=== PATIENT | male | born 1970 | race African-American/Black ===

== ENCOUNTER 2017-12-03 08:19 | Inpatient (IN) | payer OTHER ==
[2017-12-03 09:05] VITALS: BMI 22.5
--- NOTE | 2017-12-03 10:56 | HP ---
COWS - Scale Resting Pulse: 1= IN 81-100 Sweatin=Flushed/Facial Moisture Restless Observation: 3= Extraneous Movement Pupil Size: 2= Moderately Dilated Bone or Joint Aches: 2= Severe Diffuse Aches Runny Nose/ Eye Tearin= Runny Nose/Eyes GI Upset > 30mins: 2= Nausea/Diarrhea Tremor Observation: 2= Slight Tremor Visible Yawning Observation: 2= >3x During Session Anxiety or Irritability: 2=Irritable/Anxious Goose Flesh Skin: 0=Smooth Skin COWS Score: 20 CIWA Score - CIWA Score Nausea/Vomitin Muscle Tremors: 3 Anxiety: 3 Agitation: 2 Paroxysmal Sweats: 2 Orientation: 0-Oriented Tacttile Disturbances: 2-Mild Itch/Numbness/Burn Auditory Disturbances: 2-Mild Harshness/Frighten Visual Disturbances: 1-Very Mild Sensitivity Headache: 2-Mild CIWA-Ar Total Score: 20 Admission ROS BHS - HPI Chief Complaint: i need help yo stop using heroin,cocaine and marijuana Allergies/Adverse Reactions: Allergies Allergy/AdvReac Type Severity Reaction Status Date / Time divalproex sodium Allergy Hives Verified 12/03/17 09:19 [From [facility]] History of Present Illness: this 47 years old male with heroin,cocaine and marijuana dependence,seeking detox,withdrawal symptom, never been in detox before weight loss iddm hypertension,hepatitis c treated at [facility] bipolar disorder nicotine dependence Exam Limitations: No Limitations - Ebola screening Have you traveled outside of the country in the last 21 days: No Have you had contact with anyone from an Ebola affected area: No Have you been sick,other than usual withdrawal symptoms: No Do you have a fever: No - Review of Systems Constitutional: Chills, Loss of Appetite, Malaise, Night Sweats, Changes in sleep, Weakness EENT: reports: Tearing, Nose Congestion Respiratory: reports: No Symptoms reported Cardiac: reports: Palpitations GI: reports: Diarrhea, Nausea, Poor Appetite, Vomiting : reports: No Symptoms Reported Musculoskeletal: reports: Back Pain, Joint Pain, Muscle Pain, Joint Stiffness Neuro: reports: Headache, Tremors Endocrine: reports: No Symptoms Reported Hematology: reports: No Symptoms Reported Psychiatric: reports: No Sypmtoms Reported, Judgement Intact, Mood/Affect Appropiate, Orientated x3 (bipolar disoder) Other Systems: Reviewed and Negative Patient History - Patient Medical History Hx Asthma: Yes Hx Chronic Obstructive Pulmonary Disease (COPD): No Hx Cardiac Disorders: Yes (2016 WHILE AT [facility]) Hx Hypertension: Yes (NON COMPLIANCE) Hx Hypercholesterolemia: No Hx Pacemaker: No HX Cerebrovascular Accident: No Hx Seizures: No Hx Dementia: No Hx Diabetes: Yes (IDDM) Hx Gastrointestinal Disorders: No Hx Liver Disease: Yes (HEPATITIS C) Hx Genitourinary Disorders: No Hx Sexually Transmitted Disorders: No Hx Renal Disease (ESRD): No Hx Thyroid Disease: No Hx Human Immunodeficiency Virus (HIV): No (LAST 09/29 NEGATIVE) Hx Hepatitis C: Yes (TREATED 06/28 COMPLETED TREATMENT) Hx Depression: Yes Hx Suicide Attempt: No Hx Bipolar Disorder: Yes Hx Schizophrenia: No Other Medical History: NO SUICIDAL,NO HOMICIDAL - Patient Surgical History Past Surgical History: No Hx Neurologic Surgery: No Hx Cataract Extraction: No Hx Cardiac Surgery: No Hx Lung Surgery: No Hx Breast Surgery: No Hx Breast Biopsy: No Hx Abdominal Surgery: No Hx Appendectomy: No Hx Cholecystectomy: No Hx Genitourinary Surgery: No Hx Section: No Hx Orthopedic Surgery: No Anesthesia Reaction: No - PPD History Previous Implant?: Yes Documented Results: Negative w/o proof Implanted On Prior R Admission?: No PPD to be Administered?: Yes - Smoking Cessation Smoking history: Current every day smoker Have you smoked in the past 12 months: Yes Aproximately how many cigarettes per day: 20 Hx Chewing Tobacco Use: No Initiated information on smoking cessation: Yes 'Breaking Loose' booklet given: 12/03/17 - Substance & Tx. History Hx Alcohol Use: Yes Hx Substance Use: Yes Substance Use Type: Alcohol, Cocaine, Heroin - Substances Abused Heroin Route: Inhalation Frequency: Daily Amount used: 3 bags daily ($30 ) Age of first use: 16 Date of Last Use: 12/02/17 Alcohol Route: Oral Frequency: Daily Amount used: 6-10 24 ounces of Malt Liquor, Age of first use: 16 Date of Last Use: 12/02/17 Marijuana/Hashish Route: Smoking Frequency: Daily Amount used: 2 grams daily Age of first use: 16 Date of Last Use: 12/02/17 Cocaine Route: Injection Frequency: 3-6 times per week Amount used: 50$ Age of first use: 22 Date of Last Use: 12/01/17 Family Disease History - Family Disease History Family History: Denies Admission Physical Exam [facility] - Vital Signs Vital Signs: Vital Signs - 24 hr 12/03/17 12/03/17 08:53 09:05 Temperature 96 F L 96 F L Pulse Rate 90 90 Respiratory 18 18 Rate Blood Pressure 168/91 168/91 - Physical General Appearance: Yes: Moderate Distress, Tremorous, Sweating, Anxious HEENTM: Yes: Normal ENT Inspection, MARY, Pharynx Normal Respiratory: Yes: Lungs Clear, Normal Breath Sounds, No Respiratory Distress Neck: Yes: Within Normal Limits, Supple, Trachea in good position Breast: Yes: Within Normal Limits Cardiology: Yes: Within Normal Limits, Regular Rhythm, Regular Rate, S1, S2 Abdominal: Yes: Within Normal Limits, Normal Bowel Sounds, Non Tender, Soft Genitourinary: Yes: Within Normal Limits Extremities: Yes: Within Normal Limits, Normal Range of Motion, Tremors Neurological: Yes: geospatial image analyst II-XII NML intact, Fully Oriented, Alert, Motor Strength 5/5, Normal Mood/Affect Integumentary: Yes: Dry Lymphatic: Yes: Within Normal Limits - Diagnostic (1) Opioid dependence with withdrawal Current Visit: Yes Status: Acute (2) Alcohol dependence with uncomplicated withdrawal Current Visit: Yes Status: Acute (3) Cocaine dependence, uncomplicated Current Visit: Yes Status: Acute (4) Cannabis dependence Current Visit: Yes Status: Acute (5) Old AK (myocardial infarction) Current Visit: Yes Status: Acute (6) IDDM (insulin dependent diabetes mellitus) Current Visit: Yes Status: Acute (7) Hypertension Current Visit: Yes Status: Acute (8) Bipolar 1 disorder Current Visit: Yes Status: Acute (9) Weight loss Current Visit: Yes Status: Acute Cleared for Admission [facility] - Detox or Rehab [facility] Level of Care: Medically Managed Detox Regimen/Protocol: Methadone/Librium [facility] Breath Alcohol Content Breath Alcohol Content: 0 Urine Drug Screen - Results Drug Screen Negative: No Urine Drug Screen Results: THC-Marijuana, CARLIN-Cocaine, OPI-Opiates
[2017-12-03] MEDS ORDERED: NICOTINE POLACRILEX 2 MG GUM BUC PRN (11:16)
[2017-12-03] MEDS ORDERED: guaiFENesin/D-METHORPHAN HB 10 ML UNIT-DOSE CUPS PO PRN (11:16)
[2017-12-03] MEDS ORDERED: MENTHOL/PHENOL 1 EACH UD MM PRN (11:16)
[2017-12-03] MEDS ORDERED: LOPERAMIDE HCL 2 MG CAPSULE PO PRN (11:16)
[2017-12-03] MEDS ORDERED: MAGNESIUM HYDROX 2400MG/30ML ORAL SUSPENSION 30 ML CUP PO PRN (11:16)
[2017-12-03] MEDS ORDERED: MAGNESIUM CITRATE 300 ML BOTTLE PO PRN (11:16)
[2017-12-03] MEDS ORDERED: P-EPHED 60MG/TRIPROLIDI 2.5MG TABLET PO PRN (11:16)
[2017-12-03] MEDS ORDERED: chlordiazePOXIDE HCL 25 MG CAPSULE PO PRN (11:16)
[2017-12-03] MEDS ORDERED: hydrOXYzine PAMOATE 50 MG CAPSULE (FP) PO PRN (11:16)
[2017-12-03] MEDS ORDERED: MAG HYDROX/AL HYDROX/SIMETH 30 ML UNIT-DOSE CUP PO PRN (11:16)
[2017-12-03] MEDS ORDERED: IBUPROFEN 400 MG TABLET (FP) PO PRN (11:16)
[2017-12-03] MEDS ORDERED: ACETAMINOPHEN 325 MG TABLET (FP) PO PRN (11:16)
[2017-12-03] MEDS ORDERED: chlordiazePOXIDE HCL 25 MG CAPSULE PO ONE (11:30)
[2017-12-03] MEDS ORDERED: METHADONE HCL 10 MG TABLET (FOR DETOX USE ONLY) PO ONE ×2 (11:35→23:00)
[2017-12-03] MEDS: LISINOPRIL 10 MG TABLET (FP) PO SCH (12:56)
[2017-12-03] MEDS: ASPIRIN COATED 81 MG TABLET.EC PO SCH (12:56)
[2017-12-03] MEDS: NICOTINE 21 MG/24 HOURS TOPICAL PATCH TD SCH (13:00)
--- NOTE | 2017-12-03 16:23 | CONSULT ---
[facility] Psychiatric Consult - Data Date of interview: 12/03/17 Admission source: [facility] Identifying data: First admission to [facility] for this 47 y/o AA male seeking detox treatment [address] for heroin,cocaine,cannabis and phencyclidine (not found in toxicology screen).Patient is single,a father of one,domiciled, unemployed and supported on SSI/SSD benefits. Substance Abuse History: Confirmed by patient in my interview.Details in current [facility] report : Smoking history: Current every day smoker. Have you smoked in the past 12 months: Yes. Aproximately how many cigarettes per day: 20. Hx Chewing Tobacco Use: No. Initiated information on smoking cessation: Yes. 'Breaking Loose' booklet given: 12/03/17. - Substance & Tx. History. Hx Alcohol Use: Yes. Hx Substance Use: Yes. Substance Use Type: Alcohol, Cocaine , Heroin. - Substances Abused. Heroin. Route: Inhalation. Frequency: Daily. Amount used: 3 bags daily ($30 ). Age of first use: 16. Date of Last Use: 12/02/17. Alcohol. Route: Oral. Frequency: Daily. Amount used: 6-10 24 ounces of Malt Liquor,. Age of first use: 16. Date of Last Use: 12/02/17. Marijuana/Hashish. Route: Smoking. Frequency: Daily. Amount used: 2 grams daily. Age of first use: 16. Date of Last Use: 12/02/17. Cocaine. Route: Injection. Frequency: 3-6 times per week. Amount used: 50$. Age of first use : 22. Date of Last Use: 12/01/17 Medical History: Bronchial asthma,past history of mypcardial infarction (2016), hypertension,hepatitis C and diabetes mellitus. Psychiatric History: History of several psychiatric hospitalizations ([place], [facility]).Patient reports the diagnosis of Bipolar Disorder.Gets his outpatient psychiatric services at the [facility] residential treatment program in the [place].Managed on a regimen of seroquel 400 mg/hs + wellbutrin XL 150 mg/day + trazodone 100 mg/hs.Mr Ta endorses good adherence to his medications.Admits to one suicide attempt, years ago, via overdose with insulin.Patient denies. Physical/Sexual Abuse/Trauma History: Patient denies. Additional Comment: Urine Drug Screen Results: THC-Marijuana, CARLIN-Cocaine, OPI- Opiates.Noted. Mental Status Exam - Mental Status Exam Alert and Oriented to: Time, Place, Person Cognitive Function: Good Patient Appearance: Unkempt, Disheveled Mood: Nervous, Withdrawn, Anxious Affect: Mood Congruent, Constricted Patient Behavior: Fatigued, Cooperative Speech Pattern: Clear Voice Loudness: Normal Thought Process: Goal Oriented Thought Disorder: Not Present Hallucinations: Denies Suicidal Ideation: Denies Homicidal Ideation: Denies Insight/Judgement: Poor Sleep: Poorly, Difficulty falling asleep Appetite: Good Muscle strength/Tone: Normal Gait/Station: Normal Psychiatric Findings - Problem List ([place] 1, 2,3) (1) Opioid dependence with withdrawal Current Visit: Yes Status: Acute (2) Alcohol dependence with uncomplicated withdrawal Current Visit: Yes Status: Acute (3) Cannabis dependence Current Visit: Yes Status: Acute (4) Cocaine dependence, uncomplicated Current Visit: Yes Status: Acute (5) Nicotine dependence Current Visit: Yes Status: Acute Qualifiers: Nicotine product type: cigarettes Substance use status: in withdrawal Qualified Code(s): F17.213 - Nicotine dependence, cigarettes, with withdrawal (6) Substance induced mood disorder Current Visit: Yes Status: Acute (7) Bipolar disorder Current Visit: Yes Status: Chronic Comment: As per self-report. (8) Insomnia Current Visit: Yes Status: Acute Qualifiers: Insomnia type: unspecified Qualified Code(s): G47.00 - Insomnia, unspecified - Initial Treatment Plan Initial Treatment Plan: Psychoeducation.Detoxification in progress.Sleep hygiene.Medications : seroquel 150 mg po hs + wellbutrin XL 150 mg po daily.Trazodone temporarily withdrawn.Medications are intentionally reduced in view of mild sedation on admission.Titration will follow in next 24 hours as clinically indicated.Side effects/benefits of these three drugs are discussed with the patient.Mr Ta agrees with this careplan.Pharmacy claims revisited : evidence of refills for seroquel 300 mg # 30 tab/30 days + trazodone 100 mg # 30/30 days + wellbutrin XL 150 mg po bid X 30 days at [facility] [address] (dated 11/07/17).Will monitor daily clinical course.
[2017-12-03] MEDS: metFORMIN HCL 500 MG TABLET (FP) PO SCH (16:25)
--- NOTE | 2017-12-03 16:25 | EKG ---
Test Reason : Blood Pressure : / mmHG Vent. Rate : 095 BPM Atrial Rate : 095 BPM P-R Int : 146 ms QRS Dur : 080 ms QT Int : 326 ms P-R-T Axes : 065 075 057 degrees QTc Int : 409 ms NORMAL SINUS RHYTHM NORMAL ECG NO PREVIOUS ECGS AVAILABLE Confirmed by MD ROSEMARY, AMELIE ([id number]) on 12/03/2017 4:25:02 PM Referred By: Confirmed By:AMELIE RILEY MD
[2017-12-03] MEDS: INSULIN (NOVOLOG) ASPART 100 UNITS/ML 10ML VIAL SQ SCH ×2 (16:35→22:36)
--- NOTE | 2017-12-03 17:11 | CONSULT ---
[facility] Psychiatric Consult - Data Date of interview: 12/03/17 Admission source: [facility]
[2017-12-03] MEDS: chlordiazePOXIDE HCL 25 MG CAPSULE PO SCH ×2 (17:51→22:35)
[2017-12-03 18:49] LABS: URINE APPEARANCE CLEAR; URINE BILIRUBIN NEGATIVE (<2.0 mg/dL); URINE BLOOD 2+ (NEGATIVE); URINE COLOR LTYELLOW; URINE GLUCOSE (UA) 3+ (NEGATIVE); URINE KETONE NEGATIVE (NEGATIVE); URINE LEUK ESTERASE NEGATIVE (NEGATIVE); URINE NITRITE NEGATIVE (NEGATIVE); URINE UROBILINOGEN NEGATIVE mg/dL (0.2-1.0)
[2017-12-03 18:51] LABS: EPI CELLS RARE /HPF (FEW); URINE MUCUS RARE; URINE PROTEIN 2+ (NEGATIVE)
[2017-12-03] MEDS ORDERED: MELATONIN 5 MG TABLETS PO PRN (22:00)
[2017-12-03] MEDS: QUEtiapine FUMARATE 50 MG TABLET PO SCH (22:35)
[2017-12-03] MEDS: THIAMINE HCL 100 MG TABLET (FP) PO SCH (22:35)
[2017-12-03] MEDS: INSULIN (LEVEMIR) 100 UNITS/ML UNITS SQ SCH (22:36)
--- NOTE | 2017-12-04 06:47 | PN ---
[facility] Progress Note Note: Nurse Ms. Rodriguez reports that patient appears confused. I spoke to patient, who states "I am fine and I just woke up" Patient was sitting on a chair close to the nursing station. Vital signs B/P 118 /63, HR 66, RR 16, T 97.2F. Ammonia level ordered.
[2017-12-04] MEDS: chlordiazePOXIDE HCL 25 MG CAPSULE PO SCH ×4 (07:15→22:25)
[2017-12-04] MEDS: metFORMIN HCL 500 MG TABLET (FP) PO SCH ×2 (07:16→17:30)
[2017-12-04] MEDS: sitaGLIPtin PHOSPHATE 100 MG TABLET (FP) PO SCH (07:16)
[2017-12-04] MEDS ORDERED: INSULIN (NOVOLOG) ASPART 100 UNITS/ML 10ML VIAL ONE ×3 (08:26→21:52)
[2017-12-04] MEDS: INSULIN (NOVOLOG) ASPART 100 UNITS/ML 10ML VIAL SQ SCH ×4 (08:31→22:44)
[2017-12-04] MEDS ORDERED: METHADONE HCL 10 MG TABLET (FOR DETOX USE ONLY) PO SCH (10:00)
[2017-12-04 10:07] LABS: HEMATOCRIT 42.6 % (35.4-49); HEMOGLOBIN 14.2 GM/dL (11.7-16.9); MCH 32.6 pg (25.7-33.7); MCHC 33.3 g/dl (32.0-35.9); MEAN CELL VOLUME 97.9 fl (80-96); MEAN PLT VOLUME 9.8 fl (7.5-11.1); PLATELET COUNT 273 K/MM3 (134-434); RBC 4.36 M/mm3 (4.00-5.60); RDW 14.1 % (11.9-15.9); WHITE BLOOD COUNT 7.7 K/mm3 (4.0-10.0)
[2017-12-04] MEDS: ASPIRIN COATED 81 MG TABLET.EC PO SCH (10:19)
[2017-12-04] MEDS: LISINOPRIL 10 MG TABLET (FP) PO SCH (10:19)
[2017-12-04] MEDS: PRENATAL VITAMINS W/ FOLIC ACID TABLET (FP) PO SCH (10:20)
[2017-12-04] MEDS: NICOTINE 21 MG/24 HOURS TOPICAL PATCH TD SCH (10:21)
[2017-12-04 10:36] LABS: CHLORIDE 96 mmol/L (98-107); POTASSIUM 4.7 mmol/L (3.5-5.1); SODIUM 132 mmol/L (136-145)
[2017-12-04 10:58] LABS: ALBUMIN 3.2 g/dl (3.4-5.0); ALK PHOS 130 U/L (45-117); ANION GAP 6 (8-16); BILIRUBIN,TOTAL 0.5 mg/dL (0.2-1.0); BLOOD UREA NITROGEN 18 mg/dL (7-18); CALCIUM 8.3 mg/dL (8.5-10.1); CO2 30 mmol/L (21-32); CREATININE 1.2 mg/dL (0.7-1.3); SGOT/AST 76 U/L (15-37); SGPT/ALT 48 U/L (12-78); TOT PROT 6.8 g/dl (6.4-8.2)
[2017-12-04] MEDS ORDERED: LACTULOSE 20 GM/30 ML UDC (FOR ORAL USE ONLY) PO ONE (11:26)
--- NOTE | 2017-12-04 11:26 | PN ---
S CIWA - CIWA Score Nausea/Vomitin-No Nausea/No Vomiting Muscle Tremors: 4-Moderate,w/Arms Extend Anxiety: 4-Mod. Anxious/Guarded Agitation: 4-Moderately Restless Paroxysmal Sweats: No Perspiration Orientation: 0-Oriented Tacttile Disturbances: 0-None Auditory Disturbances: 0-None Visual Disturbances: 0-None Headache: 0-None Present CIWA-Ar Total Score: 12 S COWS - Scale Resting Pulse: 1= [place] 81-100 Sweatin= Chills/Flushing Restless Observation: 3= Extraneous Movement Pupil Size: 0= Normal to Room Light Bone or Joint Aches: 4=Acute Joint/Muscle Pain Runny Nose/ Eye Tearin= None GI Upset > 30mins: 0= None Tremor Observation of Outstretched Hands: 2= Slight Tremor Visible Yawning Observation: 0= None Anxiety or Irritability: 2=Irritable/Anxious Goose Flesh Skin: 0=Smooth Skin COWS Score: 13 S Progress Note (SOAP) Subjective: ANXIETY, SLIGHT TREMORS,FATIGUE. Objective: 12/04/17 11:22 Vital Signs Temperature 96.1 F L 12/04/17 10:08 Pulse Rate 86 12/04/17 10:08 Respiratory Rate 20 12/04/17 10:08 Blood Pressure 99/58 12/04/17 10:08 O2 Sat by Pulse Oximetry (%) Laboratory Tests 12/03/17 12/03/17 12/03/17 11:09 16:38 18:00 WBC RBC Hgb Hct MCV MCH MCHC RDW Plt Count MPV POC Glucometer 443 > 600 Ammonia Urine Color Ltyellow Urine Appearance Clear Urine pH 5.0 Ur Specific [place] 1.017 Urine Protein 2+ H Urine Glucose (UA) 3+ H Urine Ketones Negative Urine Blood 2+ H Urine Nitrite Negative Urine Bilirubin Negative Urine Urobilinogen Negative Ur Leukocyte Esterase Negative Urine WBC (Auto) 1 Urine RBC (Auto) 9 Ur Epithelial Cells Rare Urine Mucus Rare 12/03/17 12/04/17 12/04/17 21:53 05:35 06:00 WBC 7.7 RBC 4.36 Hgb 14.2 Hct 42.6 MCV 97.9 H MCH 32.6 MCHC 33.3 RDW 14.1 Plt Count 273 MPV 9.8 POC Glucometer 365 222 Ammonia Urine Color Urine Appearance Urine pH Ur Specific [place] Urine Protein Urine Glucose (UA) Urine Ketones Urine Blood Urine Nitrite Urine Bilirubin Urine Urobilinogen Ur Leukocyte Esterase Urine WBC (Auto) Urine RBC (Auto) Ur Epithelial Cells Urine Mucus 12/04/17 07:50 WBC RBC Hgb Hct MCV MCH MCHC RDW Plt Count MPV POC Glucometer Ammonia 51.85 H Urine Color Urine Appearance Urine pH Ur Specific [place] Urine Protein Urine Glucose (UA) Urine Ketones Urine Blood Urine Nitrite Urine Bilirubin Urine Urobilinogen Ur Leukocyte Esterase Urine WBC (Auto) Urine RBC (Auto) Ur Epithelial Cells Urine Mucus Assessment: 12/04/17 11:22 WITHDRAWAL SX Plan: CONTINUE DETOX INCREASE PO FLUIDS LACTULOSE 20 GM PO BID, FIRST DOSE NOW.
[2017-12-04 11:28] LABS: GLUCOSE,RANDOM 384 mg/dL (74-106)
[2017-12-04] MEDS: THIAMINE HCL 100 MG TABLET (FP) PO SCH (22:25)
[2017-12-04] MEDS: LACTULOSE 20 GM/30 ML UDC (FOR ORAL USE ONLY) PO SCH (22:25)
[2017-12-04] MEDS: QUEtiapine FUMARATE 50 MG TABLET PO SCH (22:26)
[2017-12-04] MEDS: INSULIN (LEVEMIR) 100 UNITS/ML UNITS SQ SCH (22:43)
[2017-12-05] MEDS: chlordiazePOXIDE HCL 25 MG CAPSULE PO SCH ×2 (05:29→10:16)
[2017-12-05] MEDS: INSULIN (NOVOLOG) ASPART 100 UNITS/ML 10ML VIAL SQ SCH ×4 (06:10→21:57)
[2017-12-05] MEDS: metFORMIN HCL 500 MG TABLET (FP) PO SCH ×2 (07:28→17:24)
[2017-12-05] MEDS: sitaGLIPtin PHOSPHATE 100 MG TABLET (FP) PO SCH (07:28)
[2017-12-05] MEDS ORDERED: INSULIN (NOVOLOG) ASPART 100 UNITS/ML 10ML VIAL ONE ×4 (07:32→21:47)
[2017-12-05] MEDS: METHADONE HCL 5 MG TABLET (FOR DETOX USE ONLY) PO SCH (10:14)
[2017-12-05] MEDS: LACTULOSE 20 GM/30 ML UDC (FOR ORAL USE ONLY) PO SCH ×2 (10:14→22:10)
[2017-12-05] MEDS: PRENATAL VITAMINS W/ FOLIC ACID TABLET (FP) PO SCH (10:14)
[2017-12-05] MEDS: LISINOPRIL 10 MG TABLET (FP) PO SCH (10:14)
[2017-12-05] MEDS: ASPIRIN COATED 81 MG TABLET.EC PO SCH (10:14)
[2017-12-05] MEDS: NICOTINE 21 MG/24 HOURS TOPICAL PATCH TD SCH (10:16)
--- NOTE | 2017-12-05 12:25 | PN ---
S CIWA - CIWA Score Nausea/Vomitin-No Nausea/No Vomiting Muscle Tremors: 4-Moderate,w/Arms Extend Anxiety: 4-Mod. Anxious/Guarded Agitation: 4-Moderately Restless Paroxysmal Sweats: 1-Minimal Palms Moist Orientation: 0-Oriented Tacttile Disturbances: 0-None Auditory Disturbances: 0-None Visual Disturbances: 0-None Headache: 0-None Present CIWA-Ar Total Score: 13 BHS COWS - Scale Resting Pulse: 2= [place] 101-120 Sweatin= Chills/Flushing Restless Observation: 3= Extraneous Movement Pupil Size: 0= Normal to Room Light Bone or Joint Aches: 1= Mild Discomfort Runny Nose/ Eye Tearin= Nasal Congestion GI Upset > 30mins: 1= Stomach Cramp Tremor Observation of Outstretched Hands: 2= Slight Tremor Visible Yawning Observation: 1= 1-2x During Session Anxiety or Irritability: 2=Irritable/Anxious Goose Flesh Skin: 0=Smooth Skin COWS Score: 14 S Progress Note (SOAP) Subjective: ANXIETY,IRRITABILITY, SLUGGISH, FATIGUE BUT OOB ON HALLWAY. SLIGHT UNSTEADY GAIT. Objective: 12/05/17 12:25 Vital Signs Temperature 96.4 F L 12/05/17 09:17 Pulse Rate 74 12/05/17 09:17 Respiratory Rate 18 12/05/17 09:17 Blood Pressure 110/76 12/05/17 09:17 O2 Sat by Pulse Oximetry (%) Laboratory Last Values WBC 7.7 K/mm3 (4.0-10.0) 12/04/17 06:00 RBC 4.36 M/mm3 (4.00-5.60) 12/04/17 06:00 Hgb 14.2 GM/dL (11.7-16.9) 12/04/17 06:00 Hct 42.6 % (35.4-49) 12/04/17 06:00 MCV 97.9 fl (80-96) H 12/04/17 06:00 MCH 32.6 pg (25.7-33.7) 12/04/17 06:00 MCHC 33.3 g/dl (32.0-35.9) 12/04/17 06:00 RDW 14.1 % (11.9-15.9) 12/04/17 06:00 Plt Count 273 K/MM3 (134-434) 12/04/17 06:00 MPV 9.8 fl (7.5-11.1) 12/04/17 06:00 Sodium 132 mmol/L (136-145) L 12/04/17 06:00 Potassium 4.7 mmol/L (3.5-5.1) 12/04/17 06:00 Chloride 96 mmol/L (98-107) L 12/04/17 06:00 Carbon Dioxide 30 mmol/L (21-32) 12/04/17 06:00 Anion Gap 6 (8-16) L 12/04/17 06:00 BUN 18 mg/dL (7-18) 12/04/17 06:00 Creatinine 1.2 mg/dL (0.7-1.3) 12/04/17 06:00 Creat Clearance w eGFR > 60 (>60) 12/04/17 06:00 POC Glucometer 381 UNITS (80-120) 12/05/17 11:37 Random Glucose 384 mg/dL (74-106) H* 12/04/17 06:00 Calcium 8.3 mg/dL (8.5-10.1) L 12/04/17 06:00 Total Bilirubin 0.5 mg/dL (0.2-1.0) 12/04/17 06:00 AST 76 U/L (15-37) H 12/04/17 06:00 ALT 48 U/L (12-78) 12/04/17 06:00 Alkaline Phosphatase 130 U/L (45-117) H 12/04/17 06:00 Ammonia 51.85 umol/L (11-32) H 12/04/17 07:50 Total Protein 6.8 g/dl (6.4-8.2) 12/04/17 06:00 Albumin 3.2 g/dl (3.4-5.0) L 12/04/17 06:00 Urine Color Ltyellow 12/03/17 18:00 Urine Appearance Clear 12/03/17 18:00 Urine pH 5.0 (5.0-8.0) 12/03/17 18:00 Ur Specific [place] 1.017 (1.001-1.035) 12/03/17 18:00 Urine Protein 2+ (NEGATIVE) H 12/03/17 18:00 Urine Glucose (UA) 3+ (NEGATIVE) H 12/03/17 18:00 Urine Ketones Negative (NEGATIVE) 12/03/17 18:00 Urine Blood 2+ (NEGATIVE) H 12/03/17 18:00 Urine Nitrite Negative (NEGATIVE) 12/03/17 18:00 Urine Bilirubin Negative (<2.0 mg/dL) 12/03/17 18:00 Urine Urobilinogen Negative mg/dL (0.2-1.0) 12/03/17 18:00 Ur Leukocyte Esterase Negative (NEGATIVE) 12/03/17 18:00 Urine WBC (Auto) 1 /hpf (3-5) 12/03/17 18:00 Urine RBC (Auto) 9 /hpf (0-3) 12/03/17 18:00 Ur Epithelial Cells Rare /HPF (FEW) 12/03/17 18:00 Urine Mucus Rare 12/03/17 18:00 RPR Titer Nonreactive (NONREACTIVE) 12/04/17 06:00 Assessment: 12/05/17 12:25 WITHDRAWAL SX Plan: CONTINUE DETOX
[2017-12-05] MEDS: chlordiazePOXIDE 5 MG CAPSULE PO SCH ×2 (17:25→22:09)
[2017-12-05] MEDS: INSULIN (LEVEMIR) 100 UNITS/ML UNITS SQ SCH (21:57)
[2017-12-05] MEDS: THIAMINE HCL 100 MG TABLET (FP) PO SCH (22:08)
[2017-12-05] MEDS: QUEtiapine FUMARATE 50 MG TABLET PO SCH (22:09)
[2017-12-06] MEDS: metFORMIN HCL 500 MG TABLET (FP) PO SCH (06:27)
[2017-12-06] MEDS: chlordiazePOXIDE 5 MG CAPSULE PO SCH ×2 (06:27→10:32)
[2017-12-06] MEDS: sitaGLIPtin PHOSPHATE 100 MG TABLET (FP) PO SCH (06:27)
[2017-12-06] MEDS: INSULIN (NOVOLOG) ASPART 100 UNITS/ML 10ML VIAL SQ SCH ×2 (06:27→11:40)
[2017-12-06] MEDS ORDERED: INSULIN (NOVOLOG) ASPART 100 UNITS/ML 10ML VIAL ONE (07:30)
[2017-12-06] MEDS: PRENATAL VITAMINS W/ FOLIC ACID TABLET (FP) PO SCH (10:31)
[2017-12-06] MEDS: ASPIRIN COATED 81 MG TABLET.EC PO SCH (10:31)
[2017-12-06] MEDS: LISINOPRIL 10 MG TABLET (FP) PO SCH (10:31)
[2017-12-06] MEDS: METHADONE HCL 5 MG TABLET (FOR DETOX USE ONLY) PO SCH (10:31)
[2017-12-06] MEDS: LACTULOSE 20 GM/30 ML UDC (FOR ORAL USE ONLY) PO SCH (10:32)
[2017-12-06] MEDS: NICOTINE 21 MG/24 HOURS TOPICAL PATCH TD SCH (10:32)
--- NOTE | 2017-12-06 10:41 | PN ---
S Progress Note (SOAP) Subjective: ANXIETY,IRRITABILITY,RESTLESSNESS. C/O NAUSEA,VOMITING,DIARRHEA. FATIGUE. Objective: 12/06/17 10:40 Vital Signs Temperature 97.1 F L 12/06/17 05:42 Pulse Rate 99 H 12/06/17 05:42 Respiratory Rate 18 12/06/17 05:42 Blood Pressure 130/73 12/06/17 05:42 O2 Sat by Pulse Oximetry (%) Laboratory Last Values WBC 7.7 K/mm3 (4.0-10.0) 12/04/17 06:00 RBC 4.36 M/mm3 (4.00-5.60) 12/04/17 06:00 Hgb 14.2 GM/dL (11.7-16.9) 12/04/17 06:00 Hct 42.6 % (35.4-49) 12/04/17 06:00 MCV 97.9 fl (80-96) H 12/04/17 06:00 MCH 32.6 pg (25.7-33.7) 12/04/17 06:00 MCHC 33.3 g/dl (32.0-35.9) 12/04/17 06:00 RDW 14.1 % (11.9-15.9) 12/04/17 06:00 Plt Count 273 K/MM3 (134-434) 12/04/17 06:00 MPV 9.8 fl (7.5-11.1) 12/04/17 06:00 Sodium 132 mmol/L (136-145) L 12/04/17 06:00 Potassium 4.7 mmol/L (3.5-5.1) 12/04/17 06:00 Chloride 96 mmol/L (98-107) L 12/04/17 06:00 Carbon Dioxide 30 mmol/L (21-32) 12/04/17 06:00 Anion Gap 6 (8-16) L 12/04/17 06:00 BUN 18 mg/dL (7-18) 12/04/17 06:00 Creatinine 1.2 mg/dL (0.7-1.3) 12/04/17 06:00 Creat Clearance w eGFR > 60 (>60) 12/04/17 06:00 POC Glucometer 278 UNITS (80-120) 12/06/17 06:25 Random Glucose 384 mg/dL (74-106) H* 12/04/17 06:00 Calcium 8.3 mg/dL (8.5-10.1) L 12/04/17 06:00 Total Bilirubin 0.5 mg/dL (0.2-1.0) 12/04/17 06:00 AST 76 U/L (15-37) H 12/04/17 06:00 ALT 48 U/L (12-78) 12/04/17 06:00 Alkaline Phosphatase 130 U/L (45-117) H 12/04/17 06:00 Ammonia 51.85 umol/L (11-32) H 12/04/17 07:50 Total Protein 6.8 g/dl (6.4-8.2) 12/04/17 06:00 Albumin 3.2 g/dl (3.4-5.0) L 12/04/17 06:00 Urine Color Ltyellow 12/03/17 18:00 Urine Appearance Clear 12/03/17 18:00 Urine pH 5.0 (5.0-8.0) 12/03/17 18:00 Ur Specific [place] 1.017 (1.001-1.035) 12/03/17 18:00 Urine Protein 2+ (NEGATIVE) H 12/03/17 18:00 Urine Glucose (UA) 3+ (NEGATIVE) H 12/03/17 18:00 Urine Ketones Negative (NEGATIVE) 12/03/17 18:00 Urine Blood 2+ (NEGATIVE) H 12/03/17 18:00 Urine Nitrite Negative (NEGATIVE) 12/03/17 18:00 Urine Bilirubin Negative (<2.0 mg/dL) 12/03/17 18:00 Urine Urobilinogen Negative mg/dL (0.2-1.0) 12/03/17 18:00 Ur Leukocyte Esterase Negative (NEGATIVE) 12/03/17 18:00 Urine WBC (Auto) 1 /hpf (3-5) 12/03/17 18:00 Urine RBC (Auto) 9 /hpf (0-3) 12/03/17 18:00 Ur Epithelial Cells Rare /HPF (FEW) 12/03/17 18:00 Urine Mucus Rare 12/03/17 18:00 RPR Titer Nonreactive (NONREACTIVE) 12/04/17 06:00 Assessment: 12/06/17 10:40 WITHDRAWAL SX Plan: CONTINUE DETOX ZOFRAN PRN IMODIUM PRN
[2017-12-06 13:06] VITALS: BP 159/95; PULSE 95; TEMP 97.1
[2017-12-06] MEDS ORDERED: LISINOPRIL 10 MG TABLET (FP) PO ONE (13:50)
--- NOTE | 2017-12-06 15:55 | PN ---
[facility] Progress Note Note: PT DECLINED TO COMPLETE DETOX AND STATES HE DOES NOT WANT TO STAY. ALERT O X 3. OOB AMBULATING WITH CANE. ALERT O X 3. Laboratory Tests 12/03/17 12/03/17 12/03/17 11:09 16:38 18:00 WBC RBC Hgb Hct MCV MCH MCHC RDW Plt Count MPV Sodium Potassium Chloride Carbon Dioxide Anion Gap BUN Creatinine Creat Clearance w eGFR POC Glucometer 443 > 600 Random Glucose Calcium Total Bilirubin AST ALT Alkaline Phosphatase Ammonia Total Protein Albumin Urine Color Ltyellow Urine Appearance Clear Urine pH 5.0 Ur Specific [place] 1.017 Urine Protein 2+ H Urine Glucose (UA) 3+ H Urine Ketones Negative Urine Blood 2+ H Urine Nitrite Negative Urine Bilirubin Negative Urine Urobilinogen Negative Ur Leukocyte Esterase Negative Urine WBC (Auto) 1 Urine RBC (Auto) 9 Ur Epithelial Cells Rare Urine Mucus Rare RPR Titer 12/03/17 12/04/17 12/04/17 21:53 05:35 06:00 WBC 7.7 RBC 4.36 Hgb 14.2 Hct 42.6 MCV 97.9 H MCH 32.6 MCHC 33.3 RDW 14.1 Plt Count 273 MPV 9.8 Sodium Potassium Chloride Carbon Dioxide Anion Gap BUN Creatinine Creat Clearance w eGFR POC Glucometer 365 222 Random Glucose Calcium Total Bilirubin AST ALT Alkaline Phosphatase Ammonia Total Protein Albumin Urine Color Urine Appearance Urine pH Ur Specific [place] Urine Protein Urine Glucose (UA) Urine Ketones Urine Blood Urine Nitrite Urine Bilirubin Urine Urobilinogen Ur Leukocyte Esterase Urine WBC (Auto) Urine RBC (Auto) Ur Epithelial Cells Urine Mucus RPR Titer 12/04/17 12/04/17 12/04/17 06:00 06:00 07:50 WBC RBC Hgb Hct MCV MCH MCHC RDW Plt Count MPV Sodium 132 L Potassium 4.7 Chloride 96 L Carbon Dioxide 30 Anion Gap 6 L BUN 18 Creatinine 1.2 Creat Clearance w eGFR > 60 POC Glucometer Random Glucose 384 H* Calcium 8.3 L Total Bilirubin 0.5 AST 76 H ALT 48 Alkaline Phosphatase 130 H Ammonia 51.85 H Total Protein 6.8 Albumin 3.2 L Urine Color Urine Appearance Urine pH Ur Specific [place] Urine Protein Urine Glucose (UA) Urine Ketones Urine Blood Urine Nitrite Urine Bilirubin Urine Urobilinogen Ur Leukocyte Esterase Urine WBC (Auto) Urine RBC (Auto) Ur Epithelial Cells Urine Mucus RPR Titer Nonreactive 12/04/17 12/04/17 12/04/17 11:47 17:05 21:43 WBC RBC Hgb Hct MCV MCH MCHC RDW Plt Count MPV Sodium Potassium Chloride Carbon Dioxide Anion Gap BUN Creatinine Creat Clearance w eGFR POC Glucometer 375 132 376 Random Glucose Calcium Total Bilirubin AST ALT Alkaline Phosphatase Ammonia Total Protein Albumin Urine Color Urine Appearance Urine pH Ur Specific [place] Urine Protein Urine Glucose (UA) Urine Ketones Urine Blood Urine Nitrite Urine Bilirubin Urine Urobilinogen Ur Leukocyte Esterase Urine WBC (Auto) Urine RBC (Auto) Ur Epithelial Cells Urine Mucus RPR Titer 12/05/17 12/05/17 12/05/17 05:32 11:37 16:17 WBC RBC Hgb Hct MCV MCH MCHC RDW Plt Count MPV Sodium Potassium Chloride Carbon Dioxide Anion Gap BUN Creatinine Creat Clearance w eGFR POC Glucometer 182 381 200 Random Glucose Calcium Total Bilirubin AST ALT Alkaline Phosphatase Ammonia Total Protein Albumin Urine Color Urine Appearance Urine pH Ur Specific [place] Urine Protein Urine Glucose (UA) Urine Ketones Urine Blood Urine Nitrite Urine Bilirubin Urine Urobilinogen Ur Leukocyte Esterase Urine WBC (Auto) Urine RBC (Auto) Ur Epithelial Cells Urine Mucus RPR Titer 12/05/17 12/06/17 12/06/17 21:18 06:25 11:26 WBC RBC Hgb Hct MCV MCH MCHC RDW Plt Count MPV Sodium Potassium Chloride Carbon Dioxide Anion Gap BUN Creatinine Creat Clearance w eGFR POC Glucometer 404 278 100 Random Glucose Calcium Total Bilirubin AST ALT Alkaline Phosphatase Ammonia Total Protein Albumin Urine Color Urine Appearance Urine pH Ur Specific [place] Urine Protein Urine Glucose (UA) Urine Ketones Urine Blood Urine Nitrite Urine Bilirubin Urine Urobilinogen Ur Leukocyte Esterase Urine WBC (Auto) Urine RBC (Auto) Ur Epithelial Cells Urine Mucus RPR Titer 12/06/17 11:30 WBC RBC Hgb Hct MCV MCH MCHC RDW Plt Count MPV Sodium Potassium Chloride Carbon Dioxide Anion Gap BUN Creatinine Creat Clearance w eGFR POC Glucometer Random Glucose Calcium Total Bilirubin AST ALT Alkaline Phosphatase Ammonia 18.20 Total Protein Albumin Urine Color Urine Appearance Urine pH Ur Specific [place] Urine Protein Urine Glucose (UA) Urine Ketones Urine Blood Urine Nitrite Urine Bilirubin Urine Urobilinogen Ur Leukocyte Esterase Urine WBC (Auto) Urine RBC (Auto) Ur Epithelial Cells Urine Mucus RPR Titer AMMONIA LEVEL WNL Vital Signs 12/06/17 12/06/17 09:40 13:05 Temperature 98.7 F 97.1 F L Pulse Rate 103 H 95 H Respiratory 20 20 Rate Blood Pressure 144/90 159/95 PLAN: PT SIGNED OUT AMA. PT WILL FOLLOW UP WITH HIS PMD(PT NOT CERTAIN SPELLING OF NAME) AT [facility] [place]. PT STATES HE HAS HIS MEDS AT HOME. RX NOT NEEDED. PT WILL FOLLOW UP FOR AFTERCARE AT [facility] PER COUNSELOR JULIETTE GARSIA.
--- NOTE | 2017-12-06 15:59 | DS ---
[facility] Detox Discharge Summary Admission Date: 12/03/17 Discharge Date: 12/06/17 - History Present History: Alcohol Dependence, Cannabis Dependence, Cocaine Dependence, Opioid Dependence Additional Comments: PT DECLINED TO CONTINUE WITH DETOX. ALERT O X 3. NAD. FOLLOW U WITH PMD AT [facility] AND AT [facility] FOR DRUG TX AFTERCARE. Pertinent Past History: PLEASE SEE DX BELOW - Physical Exam Results Vital Signs: Vital Signs Temperature 97.1 F L 12/06/17 13:05 Pulse Rate 95 H 12/06/17 13:05 Respiratory Rate 20 12/06/17 13:05 Blood Pressure 159/95 12/06/17 13:05 O2 Sat by Pulse Oximetry (%) Pertinent Admission Physical Exam Findings: WITHDRAWAL SX Laboratory Tests 12/03/17 12/03/17 12/03/17 11:09 16:38 18:00 WBC RBC Hgb Hct MCV MCH MCHC RDW Plt Count MPV Sodium Potassium Chloride Carbon Dioxide Anion Gap BUN Creatinine Creat Clearance w eGFR POC Glucometer 443 > 600 Random Glucose Calcium Total Bilirubin AST ALT Alkaline Phosphatase Ammonia Total Protein Albumin Urine Color Ltyellow Urine Appearance Clear Urine pH 5.0 Ur Specific [place] 1.017 Urine Protein 2+ H Urine Glucose (UA) 3+ H Urine Ketones Negative Urine Blood 2+ H Urine Nitrite Negative Urine Bilirubin Negative Urine Urobilinogen Negative Ur Leukocyte Esterase Negative Urine WBC (Auto) 1 Urine RBC (Auto) 9 Ur Epithelial Cells Rare Urine Mucus Rare RPR Titer 12/03/17 12/04/17 12/04/17 21:53 05:35 06:00 WBC 7.7 RBC 4.36 Hgb 14.2 Hct 42.6 MCV 97.9 H MCH 32.6 MCHC 33.3 RDW 14.1 Plt Count 273 MPV 9.8 Sodium Potassium Chloride Carbon Dioxide Anion Gap BUN Creatinine Creat Clearance w eGFR POC Glucometer 365 222 Random Glucose Calcium Total Bilirubin AST ALT Alkaline Phosphatase Ammonia Total Protein Albumin Urine Color Urine Appearance Urine pH Ur Specific [place] Urine Protein Urine Glucose (UA) Urine Ketones Urine Blood Urine Nitrite Urine Bilirubin Urine Urobilinogen Ur Leukocyte Esterase Urine WBC (Auto) Urine RBC (Auto) Ur Epithelial Cells Urine Mucus RPR Titer 12/04/17 12/04/17 12/04/17 06:00 06:00 07:50 WBC RBC Hgb Hct MCV MCH MCHC RDW Plt Count MPV Sodium 132 L Potassium 4.7 Chloride 96 L Carbon Dioxide 30 Anion Gap 6 L BUN 18 Creatinine 1.2 Creat Clearance w eGFR > 60 POC Glucometer Random Glucose 384 H* Calcium 8.3 L Total Bilirubin 0.5 AST 76 H ALT 48 Alkaline Phosphatase 130 H Ammonia 51.85 H Total Protein 6.8 Albumin 3.2 L Urine Color Urine Appearance Urine pH Ur Specific [place] Urine Protein Urine Glucose (UA) Urine Ketones Urine Blood Urine Nitrite Urine Bilirubin Urine Urobilinogen Ur Leukocyte Esterase Urine WBC (Auto) Urine RBC (Auto) Ur Epithelial Cells Urine Mucus RPR Titer Nonreactive 12/04/17 12/04/17 12/04/17 11:47 17:05 21:43 WBC RBC Hgb Hct MCV MCH MCHC RDW Plt Count MPV Sodium Potassium Chloride Carbon Dioxide Anion Gap BUN Creatinine Creat Clearance w eGFR POC Glucometer 375 132 376 Random Glucose Calcium Total Bilirubin AST ALT Alkaline Phosphatase Ammonia Total Protein Albumin Urine Color Urine Appearance Urine pH Ur Specific [place] Urine Protein Urine Glucose (UA) Urine Ketones Urine Blood Urine Nitrite Urine Bilirubin Urine Urobilinogen Ur Leukocyte Esterase Urine WBC (Auto) Urine RBC (Auto) Ur Epithelial Cells Urine Mucus RPR Titer 12/05/17 12/05/17 12/05/17 05:32 11:37 16:17 WBC RBC Hgb Hct MCV MCH MCHC RDW Plt Count MPV Sodium Potassium Chloride Carbon Dioxide Anion Gap BUN Creatinine Creat Clearance w eGFR POC Glucometer 182 381 200 Random Glucose Calcium Total Bilirubin AST ALT Alkaline Phosphatase Ammonia Total Protein Albumin Urine Color Urine Appearance Urine pH Ur Specific [place] Urine Protein Urine Glucose (UA) Urine Ketones Urine Blood Urine Nitrite Urine Bilirubin Urine Urobilinogen Ur Leukocyte Esterase Urine WBC (Auto) Urine RBC (Auto) Ur Epithelial Cells Urine Mucus RPR Titer 12/05/17 12/06/17 12/06/17 21:18 06:25 11:26 WBC RBC Hgb Hct MCV MCH MCHC RDW Plt Count MPV Sodium Potassium Chloride Carbon Dioxide Anion Gap BUN Creatinine Creat Clearance w eGFR POC Glucometer 404 278 100 Random Glucose Calcium Total Bilirubin AST ALT Alkaline Phosphatase Ammonia Total Protein Albumin Urine Color Urine Appearance Urine pH Ur Specific [place] Urine Protein Urine Glucose (UA) Urine Ketones Urine Blood Urine Nitrite Urine Bilirubin Urine Urobilinogen Ur Leukocyte Esterase Urine WBC (Auto) Urine RBC (Auto) Ur Epithelial Cells Urine Mucus RPR Titer 12/06/17 11:30 WBC RBC Hgb Hct MCV MCH MCHC RDW Plt Count MPV Sodium Potassium Chloride Carbon Dioxide Anion Gap BUN Creatinine Creat Clearance w eGFR POC Glucometer Random Glucose Calcium Total Bilirubin AST ALT Alkaline Phosphatase Ammonia 18.20 Total Protein Albumin Urine Color Urine Appearance Urine pH Ur Specific [place] Urine Protein Urine Glucose (UA) Urine Ketones Urine Blood Urine Nitrite Urine Bilirubin Urine Urobilinogen Ur Leukocyte Esterase Urine WBC (Auto) Urine RBC (Auto) Ur Epithelial Cells Urine Mucus RPR Titer - Treatment Hospital Course: Discharged Condition Good, Rehab Referral Accepted Patient has Accepted a Rehab Referral to: [facility] - Medication Discharge Medications: Ambulatory Orders Insulin (Levemir) [Levemir Vial] 20 unit SQ BID 12/03/17 Bupropion HCl [Wellbutrin Xl -] 150 mg PO DAILY #30 tab.sr.[id number] 12/06/17 Quetiapine Fumarate [Seroquel] 100 mg PO HS #30 tablet 12/06/17 - Diagnosis (1) Alcohol dependence with uncomplicated withdrawal Current Visit: Yes Status: Acute (2) Cannabis dependence Current Visit: Yes Status: Acute (3) Cocaine dependence, uncomplicated Current Visit: Yes Status: Acute (4) Hypertension Current Visit: Yes Status: Chronic Qualifiers: Hypertension type: essential hypertension Qualified Code(s): I10 - Essential (primary) hypertension (5) IDDM (insulin dependent diabetes mellitus) Current Visit: Yes Status: Chronic (6) Insomnia Current Visit: Yes Status: Acute Qualifiers: Insomnia type: unspecified Qualified Code(s): G47.00 - Insomnia, unspecified (7) Nicotine dependence Current Visit: Yes Status: Acute Qualifiers: Nicotine product type: cigarettes Substance use status: in withdrawal Qualified Code(s): F17.213 - Nicotine dependence, cigarettes, with withdrawal (8) Old [place] (myocardial infarction) Current Visit: Yes Status: Resolved (9) Opioid dependence with withdrawal Current Visit: Yes Status: Acute (10) Weight loss Current Visit: Yes Status: Acute (11) Hyperammonemia Current Visit: Yes Status: Acute - AMA Did Patient Leave Against Medical Advice: Yes (AMA)
[2017-12-06] MEDS ORDERED: chlordiazePOXIDE HCL 10 MG CAPSULE PO SCH (17:00)
[2017-12-07] MEDS ORDERED: METHADONE HCL 10 MG TABLET (FOR DETOX USE ONLY) PO SCH (10:00)
[2017-12-08] MEDS ORDERED: METHADONE HCL 5 MG TABLET (FOR DETOX USE ONLY) PO SCH (06:00)
== END 2017-12-06 16:12 | disposition home or self-care (01) | DRG 897 ==
LOC: YASAS 08:19 → Y3N 11:05
PROVIDERS: ADMIT Internal Medicine; ATTEND Internal Medicine
PROC: HZ2ZZZZ Detoxification Services for Substance Abuse Treatment (ICD-10-PCS; principal; 2017-12-03)
DX: F11.23 Opioid dependence with withdrawal (principal); F14.20 Cocaine dependence, uncomplicated; F31.89 Other bipolar disorder; E72.20 Disorder of urea cycle metabolism, unspecified; F10.230 Alcohol dependence with withdrawal, uncomplicated; F12.20 Cannabis dependence, uncomplicated; F17.213 Nicotine dependence, cigarettes, with withdrawal; F19.24 Other psychoactive substance dependence with psychoactive substance-induced mood disorder; I25.2 Old myocardial infarction; I10 Essential (primary) hypertension; E11.9 Type 2 diabetes mellitus without complications; Z79.4 Long term (current) use of insulin; G47.00 Insomnia, unspecified; R63.4 Abnormal weight loss; Z68.22 Body mass index [BMI] 22.0-22.9, adult
CPT/HCPCS: 36415; 80053; 81003; 81015; 82140; 82962; 85027; 86593; 93005; 93010